=== PATIENT | male | born 1985 | race Caucasian/White ===

== ENCOUNTER → 2017-01-23 | Outpatient (CLI) | payer OTHER | LOC: LAB 09:22 | DX: R74.8 Abnormal levels of other serum enzymes (principal); J45.20 Mild intermittent asthma, uncomplicated; Z00.00 Encounter for general adult medical examination without abnormal findings ==

== ENCOUNTER → 2019-09-05 | Outpatient (CLI) | payer BC ==
[2019-09-05 09:50] LABS: URINE WBC 0 /hpf (0-3)
[2019-09-05 09:51] LABS: HEMATOCRIT 41.7 % (42.0-52.0); HEMOGLOBIN 14.2 g/dL (13.5-18.0); MEAN PLATELET VOLUME 9.5 fl (7.4-10.4); RED BLOOD COUNT 4.3 M/mm3 (4.20-5.60); RED CELL DISTRIBUTION WIDTH 12.2 % (11.5-14.5); WHITE BLOOD COUNT 4.6 K/mm3 (4.8-10.8)
[2019-09-05 10:05] LABS: ALBUMIN 4.8 g/dL (3.5-5.0); POTASSIUM 3.7 mmol/L (3.5-5.1)
[2019-09-05 10:08] LABS: TOTAL PROTEIN 7.4 g/dL (6.4-8.3)
[2019-09-05 10:13] LABS: PH-URINE 5.5 (5.0 - 8.0); URINE APPEARANCE CLEAR; URINE BILIRUBIN NEGATIVE (NEGATIVE); URINE BLOOD NEGATIVE (NEGATIVE); URINE COLOR YELLOW; URINE GLUCOSE NEGATIVE (NEGATIVE); URINE KETONE NEGATIVE (NEGATIVE); URINE LEUKOCYTE ESTERASE NEGATIVE (NEGATIVE); URINE NITRATE NEGATIVE (NEGATIVE); URINE PROTEIN(semi-quant) NEGATIVE (NEGATIVE); URINE UROBILINOGEN NORMAL (NORMAL)
== END ==
LOC: LAB 09:39
PROVIDERS: Family Medicine
DX: Z00.00 Encounter for general adult medical examination without abnormal findings (principal); I10 Essential (primary) hypertension; L74.512 Primary focal hyperhidrosis, palms; J45.998 Other asthma

== ENCOUNTER → 2019-09-18 | Outpatient (CLI) | payer BC ==
[2019-09-18 17:13] LABS: HEMATOCRIT 41.6 % (42.0-52.0); HEMOGLOBIN 14.2 g/dL (13.5-18.0); MEAN PLATELET VOLUME 9.3 fl (7.4-10.4); RED BLOOD COUNT 4.35 M/mm3 (4.20-5.60); RED CELL DISTRIBUTION WIDTH 11.9 % (11.5-14.5); WHITE BLOOD COUNT 6.2 K/mm3 (4.8-10.8)
== END ==
LOC: LAB 17:03
PROVIDERS: Family Medicine
DX: K71.50 Toxic liver disease with chronic active hepatitis without ascites (principal); R79.89 Other specified abnormal findings of blood chemistry

== ENCOUNTER → 2020-03-30 | Outpatient (CLI) | payer BC | LOC: LAB 08:18 | DX: R50.9 Fever, unspecified (principal); R05 Cough; R51 Headache; R53.83 Other fatigue; R43.8 Other disturbances of smell and taste; R09.81 Nasal congestion ==

== ENCOUNTER → 2020-04-23 | Outpatient (CLI) | payer BC ==
[2020-04-23 17:25] LABS: ALBUMIN 5.1 g/dL (3.5-5.0)
[2020-04-23 17:28] LABS: TOTAL PROTEIN 8.1 g/dL (6.4-8.3)
[2020-04-23 17:29] LABS: TOTAL BILIRUBIN 0.7 mg/dL (0.2-1.2)
[2020-04-23 17:33] LABS: DIRECT BILIRUBIN 0.4 mg/dL (0.0-0.5)
== END ==
LOC: LAB 16:58
PROVIDERS: Family Medicine
DX: K71.50 Toxic liver disease with chronic active hepatitis without ascites (principal)

== ENCOUNTER → 2020-05-26 | Outpatient (CLI) | payer BC ==
[2020-05-26 17:10] LABS: ALBUMIN 4.9 g/dL (3.5-5.0)
[2020-05-26 17:13] LABS: TOTAL PROTEIN 7.5 g/dL (6.4-8.3)
[2020-05-26 17:15] LABS: TOTAL BILIRUBIN 0.7 mg/dL (0.2-1.2)
[2020-05-26 17:18] LABS: AST-SGOT 110 U/L (5-34); DIRECT BILIRUBIN 0.4 mg/dL (0.0-0.5)
[2020-05-26 17:19] LABS: ALT/SGPT 149 U/L (0-55)
[2020-05-26 17:45] LABS: ALCOHOL IN-HOUSE < 10 mg/dL (<10)
== END ==
LOC: LAB 16:42
PROVIDERS: Family Medicine
DX: K71.50 Toxic liver disease with chronic active hepatitis without ascites (principal); F10.20 Alcohol dependence, uncomplicated

== ENCOUNTER → 2020-10-22 | Outpatient (CLI) | payer BC | LOC: RAD 16:04 | DX: M25.562 Pain in left knee (principal) ==

== ENCOUNTER 2024-01-06 17:20 | Emergency (ER) | payer BC ==
[~2024-01-06 17:20] MED LIST: LIBRIUM 25M25 MG/CAP PO; LORazepam 0.5 MG TABLET PO ONE; NS 1,000 ML IV ONE; PRILOSEC 20MG20 MG PO; ZESTRIL5 M1 PO
[2024-02-24 15:07] LABS: URINE WBC 0 /hpf (0-3)
[2024-02-25 05:28] LABS: BASO # 0.05 K/mm3 (0.02-0.10); EOS # 0.34 K/mm3 (0.04-0.40); HEMATOCRIT 39.7 % (42.0-52.0); HEMOGLOBIN 14.2 g/dL (13.5-18.0); MEAN CELL VOLUME 93 fl (78-100); MEAN CORPUSCULAR HEMOGLOBIN 33 pg (27-31); MEAN CORPUSCULAR HGB CONC 36 g/dL (33-37); MEAN PLATELET VOLUME 8.5 fl (7.4-10.4); NEU # 1.98 K/mm3 (1.40-6.50); PLATELET COUNT 219 K/mm3 (130-400); RED BLOOD COUNT 4.28 M/mm3 (4.20-5.60); RED CELL DISTRIBUTION WIDTH 11.9 % (11.5-14.5); WHITE BLOOD COUNT 4.3 K/mm3 (4.8-10.8)
[2024-02-25 05:40] LABS: ACETAMINOPHEN < 1 ug/mL; ALBUMIN 5.4 g/dL (3.5-5.0); ALCOHOL IN-HOUSE 370 mg/dL (<10); ALT/SGPT 56 U/L (0-55); AST-SGOT 69 U/L (5-34); CALCIUM 9.7 mg/dL (8.3-10.5); CARBON DIOXIDE 21 mmol/L (22-29); GLUCOSE 91 mg/dL (75-110); SODIUM 131 mmol/L (136-145); TOTAL BILIRUBIN 0.5 mg/dL (0.2-1.2); TOTAL PROTEIN 8.4 g/dL (6.4-8.3)
[2024-02-25 05:44] LABS: URINE APPEARANCE CLEAR (CLEAR); URINE COLOR YELLOW (YELLOW); URINE GLUCOSE NEGATIVE (NEGATIVE); URINE KETONE NEGATIVE (NEGATIVE); URINE PROTEIN(semi-quant) NEGATIVE (NEGATIVE)
[2024-02-25 05:45] LABS: URINE BILIRUBIN NEGATIVE (NEGATIVE); URINE BLOOD TRACE (NEGATIVE); URINE LEUKOCYTE ESTERASE NEGATIVE (NEGATIVE); URINE NITRATE NEGATIVE (NEGATIVE)
== END 2024-01-07 11:20 | disposition other institution (70) ==
LOC: ED 17:20
PROVIDERS: Physician Assistant
DX: F10.129 Alcohol abuse with intoxication, unspecified (principal); R45.851 Suicidal ideations
CPT/HCPCS: J7030